=== PATIENT | female | born 1960 | race Caucasian/White ===

== ENCOUNTER 2022-06-18 12:16 | Emergency (ER) | payer OTHER | END 2022-06-18 14:33 | disposition home or self-care (01) | LOC: JP.ED 12:16 | DX: S82.031A Displaced transverse fracture of right patella, initial encounter for closed fracture (principal); I10 Essential (primary) hypertension; Z79.899 Other long term (current) drug therapy; W18.40XA Slipping, tripping and stumbling without falling, unspecified, initial encounter; Y99.0 Civilian activity done for income or pay | CPT/HCPCS: 73562-26-RT; 73562-RT; 99283 ==